=== PATIENT | female | born 1965 | race Asian ===

== ENCOUNTER 2017-10-19 06:24 | Day surgery (SDC) | payer BC ==
[~2017-10-19 06:24] MED LIST: Buffered Lidocaine 0.9% SYRIN* 5 ML/SYR SYRINGE INTRADERM ONE; Famotidine IV* 10 MG/ML 2 ML (20 mg) IV ONE; Famotidine IV* 10 MG/ML 2 ML (20 mg) ONE
[2017-10-19] MEDS ORDERED: Clindamycin 900 MG IVPREMIX(* 0 MG/0 ML SDV IV ONE (06:38)
[2017-10-19] MEDS ORDERED: Lidocaine 1% INJ* 10 MG/ML 30 ML SDV ONE (07:15)
[2017-10-19] MEDS ORDERED: Bupivacaine 0.5%* 50 ML VIAL ONE (07:15)
[2017-10-19] MEDS ORDERED: Dexamethasone IV* 4 MG/ML 1 ML (4 MG) ONE ×2 (07:16→08:07)
[2017-10-19] MEDS ORDERED: Levofloxacin 750 MG IVPREMIX(* 750 MG/150 ML BAG ONE (07:29)
[2017-10-19] MEDS ORDERED: fentaNYL* 50 MCG/ML 2 ML VIAL (100 MCG VIAL) ONE (07:33)
[2017-10-19] MEDS ORDERED: Midazolam* 1 MG/ML 5 ML VIAL (5 MG) ONE (07:34)
[2017-10-19] MEDS ORDERED: Ondansetron INJ* 2 MG/ML VIAL ONE (08:07)
[2017-10-19] MEDS ORDERED: Propofol* 10 MG/ML 20 ML BTL IV PUSH ONE (08:07)
[2017-10-19] MEDS ORDERED: Lidocaine 2% PF * 5 ML VIAL ONE (08:07)
[2017-10-19] MEDS ORDERED: Naloxone* 0.4 MG/ML 1 ML VIAL IV PRN (08:10)
[2017-10-19] MEDS ORDERED: Acetaminophen TAB* 325 MG PO PRN (08:10)
[2017-10-19] MEDS ORDERED: HYDROmorphone INJ* 0.5 MG/0.5 ML SYRINGE IV PRN (08:10)
[2017-10-19] MEDS ORDERED: oxyCODONE TAB* 5 MG TAB PO PRN (08:10)
[2017-10-19] MEDS ORDERED: DiMENhydriNATE IV* 50 MG/ML VIAL IV PUSH PRN (08:10)
[2017-10-19 09:19] VITALS: BP 106/69
--- NOTE | 2017-10-19 21:39 | OP ---
DATE OF OPERATION: 10/19/17 - [facility] DATE OF : 63 SURGEON: Sanjeev Kerr DPM [employer] HELPER: None. ANESTHESIA: MAC with local. PRE-OP DIAGNOSIS: Painful bunion deformity with hallux limitus, right foot. POST-OP DIAGNOSIS: Painful bunion deformity with hallux limitus, right foot. OPERATIVE PROCEDURE: Bunionectomy with first metatarsal osteotomy and phalangeal osteotomy, right foot. PATHOLOGY: Degenerative bone. HEMOSTASIS: Pneumatic ankle tourniquet. ESTIMATED BLOOD LOSS: Less than 10 cc. MATERIALS: Two of the 3.0 mm cannulated Tasha screws. INDICATIONS: Patient with chronic right forefoot pain and deformity with bunion and hypertrophic bone medially, decreased range of motion, pain while wearing shoes and while walking, and the patient opted for surgery at this time to attempt to decrease pain and improve his function. DESCRIPTION OF PROCEDURE: The patient was brought to the operating room and placed on the operative table in supine position. The anesthesia department administered IV sedation. A peripheral nerve block was performed about the right foot with a 1:1 mixture of 1% lidocaine plain and 0.5% Marcaine plain. The right foot was then prepped and draped in the usual fashion. The right foot was exsanguinated with an Esmarch bandage and the pneumatic ankle tourniquet was inflated to 250 mmHg about a well-padded right ankle. Attention was directed to the dorsal medial aspect of the right great toe joint where a curvilinear incision was made. The incision was deepened through subcutaneous tissues with care being taken to retract neurovascular structures and then cauterize superficial bleeders as needed. Capsular and periosteal incision was made to allow for exposure of the joint. McGlamry elevator was needed to free the plantar lateral adhesions of the sesamoid apparatus. Next, a traditional lateral release was performed after dissecting into the metatarsal space and releasing the conjoint tendon of the adductor hallucis, posterior lateral capsule and lateral fibular sesamoid ligament. The extensor hallucis brevis tendon was also identified and transected. This allowed for relaxation of all lateral contractures. The joint surfaces were inspected and found to be grossly intact without significant cartilaginous defect or erosions. Hypertrophic bones were resected off the medial first metatarsal head with a sagittal saw in a manner to preserve the sagittal groove. Next, a Chevron type first metatarsal osteotomy was performed apexes, dorsal and proximal to the geometric center of the first metatarsal head. The plantar wing was cut from medial to lateral and angled slightly plantar laterally. There were some plantar flexion of the capital fragment. The dorsal wing was then cut and the capital fragment was transposed laterally to correct position. Temporary fixation was achieved away from the screw set using standard technique after assessing the position with a C-arm, 3.0 mm cannulated screw was placed across the osteotomy site. Temporary fixation was removed, the osteotomy was inspected , felt to be solid with no detectable motion or gapping and the screw was 2 fingers tight. Again, the fixation position was assessed with a C-arm and the joint was visually inspected and ensured the tip of the screw did not penetrate into the joint. Redundant medial shaft of bone was resected with a sagittal saw. Surgical site was flushed with copious amounts of normal sterile saline. Next, the hallux interphalangeus was addressed by dissecting further distal medially. Care being taken to retract neuro-vascular structures and cauterize superficial bleeders as needed. Periosteal and capsular incision was made to allow for exposure of the proximal phalanx and angular phalangeal osteotomy was performed from distal medial more proximal lateral with medially wedged bone resected and the proximal lateral hinge maintained. The osteotomy was reduced and temporary fixation was achieved with the wire from screw set and get in position with assessment of C-arm and using standard technique, a 3.0 mm cannulated screw was placed across the osteotomy site. The temporary fixation was removed and the final position and fixation was assessed with a C-arm. The osteotomy was found to be solid with no detectable motion or gapping and the screw was 2 fingers tight. Power jose miguel was used to smooth rough edges. Surgical site was flushed with copious amounts of normal sterile saline. Redundant medial capsule was resected and the periosteal and capsular tissues were reapproximated and secured with 2-0 Vicryl while holding the hallux in rectus position. Subcutaneous tissues were reapproximated and secured with 4-0 Vicryl and the skin was reapproximated and secured with 5-0 nylon. A 12 mg of dexamethasone phosphate was infiltrated about the surgical site and the incision was dressed with Xeroform gauze and a light compression dressing consisting of 4x4 gauze, Marianne, and light Coban wrap was applied. The pneumatic ankle tourniquet was deflated about the right ankle and a prompt hyperemic response was noted about all 5 digits of the patient's right foot. Having appeared to tolerate the procedures and anesthesia well, the patient was transported via cart from the operating room to Recovery in satisfactory condition with cap refill less than 3 seconds to all digits on the right foot. [id number]/CPS #: [id number] MTDD
--- NOTE | 2017-10-20 14:13 | RAD ---
INDICATION: Foot. No other history is provided COMPARISONS: None relevant TECHNIQUE: Fluoroscopy was provided for a surgical procedure. Total fluoroscopy time is: 24 seconds FINDINGS: Spot images demonstrate osteotomy and fixation of the distal first metatarsal and first proximal phalanx. IMPRESSION: FLUOROSCOPY WAS PROVIDED FOR A SURGICAL PROCEDURE CPT II Codes: G9500
== END 2017-10-19 09:46 | disposition home or self-care (01) ==
LOC: OREAST 06:24
PROVIDERS: ATTEND Podiatrist Foot Surgery
DX: M21.611 Bunion of right foot (principal); Z87.891 Personal history of nicotine dependence; J45.909 Unspecified asthma, uncomplicated; E03.9 Hypothyroidism, unspecified
CPT/HCPCS: 76000; 88304; 88311; C1713; J1100; J2250; J2405; J2704; J3010